=== PATIENT | male | born 1960 | race Caucasian/White ===

== ENCOUNTER → 2018-12-23 08:49 | Outpatient (CLI) | payer OTHER, SELFPAY ==
[2018-12-23 10:59] LABS: Cholesterol 123 mg/dL (140-199); HDL Cholesterol 66 mg/dL (40-60); LDL Cholesterol Calculated 48 mg/dL (<100); Triglycerides 44 mg/dL (35-150)
[2018-12-26 15:31] LABS: Lipoprotein (a) 178 nmol/L (<75)
== END ==
PROVIDERS: PCP Internal Medicine; Visit Provider Internal Medicine
DX: I25.10 Atherosclerotic heart disease of native coronary artery without angina pectoris (principal)
CPT/HCPCS: 36415; 80061; 83695

== ENCOUNTER 2020-11-24 19:12 | Emergency (ER) | payer OTHER, SELFPAY ==
[2020-11-24 19:14] VITALS: BP 160/80; PULSE 75; RESP 18; TEMP 36.7; O2SAT 99
--- NOTE | 2020-11-24 19:17 | DI.RAD.S_ITS ---
PROCEDURE: XR CLAVICLE LT INDICATIONS: fall TECHNIQUE: 2 views of the clavicle were acquired. COMPARISON: None. FINDINGS: Bones: No fractures or dislocations. There is slight elevation of the distal clavicle respect to the acromion but no significant coracoclavicular interval widening. Acromioclavicular interval remains normal. No suspicious bony lesions. Soft tissues: No suspicious soft tissue calcifications. IMPRESSION: 1. Slight distal clavicular elevation without significant AC or CC joint space widening. Consider routine evaluation without and with weights if symptoms continue. 2. No visible clavicular fracture. Dictated by: Blossom Chavez M.D. on 11/24/2020 at 19:54 Approved by: Blossom Chavez M.D. on 11/24/2020 at 19:56
--- NOTE | 2020-11-24 19:17 | DI.RAD.S_ITS ---
PROCEDURE: XR WRIST LT MIN 3V INDICATIONS: fall TECHNIQUE: Four views of the wrist were acquired. COMPARISON: None. FINDINGS: Bones: No fractures or dislocations. Mild degenerative spurring at the 1st CMC joint. No suspicious bony lesions. Scaphoid view: No fractures. Soft tissues: No suspicious soft tissue calcifications. IMPRESSION: Intact left wrist. Dictated by: Blossom Chavez M.D. on 11/24/2020 at 19:56 Approved by: Blossom Chavez M.D. on 11/24/2020 at 19:57
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
[2020-11-24 20:43] VITALS: BP 155/83; PULSE 76; RESP 16; O2SAT 100
== END 2020-11-24 20:44 | disposition home or self-care (01) ==
PROVIDERS: Emergency Provider Emergency Medicine; PCP Internal Medicine
DX: S63.502A Unspecified sprain of left wrist, initial encounter (principal); S43.006A Unspecified dislocation of unspecified shoulder joint, initial encounter; W19.XXXA Unspecified fall, initial encounter
CPT/HCPCS: 73000; 73110; 99281; 99283

== ENCOUNTER → 2024-02-06 13:47 | Outpatient (CLI) | payer OTHER, SELFPAY ==
[2024-02-06 21:07] LABS: Prostate Specific Antigen 0.162 ng/mL (0.10-4.00)
[2024-02-06 21:08] LABS: Testosterone 77.4 ng/dL (71.8-623)
== END ==
PROVIDERS: PCP Family Medicine; Visit Provider Physician Assistant
DX: C61 Malignant neoplasm of prostate (principal)
CPT/HCPCS: 84153; 84403

== ENCOUNTER → 2024-04-13 08:48 | Outpatient (CLI) | payer OTHER, SELFPAY ==
[2024-04-13 18:08] LABS: Add Manual Diff / Slide Review NO; Basophils Absolute Auto 0 /uL (0-100); Basophils Percent Auto 0.7 % (0-2); Eosinophils Absolute Auto 200 /uL (0-450); Eosinophils Percent Auto 3.2 % (2-4); Hematocrit 44.3 % (41-53); Hemoglobin 14.8 g/dL (13.5-17.5); Lymphocytes Absolute Auto 700 /uL (1100-4500); Lymphocytes Percent Auto 11.1 % (25-40); Mean Corpuscular HGB Conc 33.5 % (30-36); Mean Corpuscular Hemoglobin 31.3 PG (26-34); Mean Corpuscular Volume 93.5 fL (80-100); Monocytes Absolute Auto 600 /uL (0-900); Monocytes Percent Auto 8.9 % (3-14); Neutrophils Absolute Auto 4700 /uL (1500-7000); Neutrophils Percent Auto 76.1 % (50-75); Platelet Count 237 X10^3/uL (150-400); Red Blood Cell Count 4.74 X10^6/uL (4.5-5.9); Red Cell Distribution Width 13.8 % (11.6-14.8); White Blood Cell Count 6.2 X10^3/uL (4.5-11.0)
[2024-04-13 18:21] LABS: Alanine Aminotransferase 30 IU/L (<50); Albumin 4.3 g/dL (3.5-5.0); Albumin Globulin Ratio 1.4 (1.0-2.8); Alkaline Phosphatase 78 U/L (38-126); Aspartate Aminotransferase 35 IU/L (17-59); BUN Creatinine Ratio 18.1 (6-22); Blood Urea Nitrogen 15 mg/dL (9-20); Calcium 9.3 mg/dL (8.4-10.2); Carbon Dioxide 26 mmol/L (22-32); Chloride 103 mmol/L (98-107); Cholesterol 148 mg/dL (140-199); Estimated Glomerular Filt Rate > 60 mL/min (>60); Glucose 102 mg/dL (80-110); HDL Cholesterol 60 mg/dL (40-60); HEMOLYSIS 31 (0-50); LDL Cholesterol Calculated 73 mg/dL (<100); Potassium 4.6 mmol/L (3.4-5.1); Sodium 137 mmol/L (137-145); Total Protein 7.3 g/dL (6.3-8.2); Triglycerides 74 mg/dL (35-150)
[2024-04-13 18:51] LABS: Prostate Specific Antigen 0.352 ng/mL (0.10-4.00)
[2024-04-19 08:11] LABS: Testosterone Total 714.4 ng/dL (264.0-916.0)
== END ==
PROVIDERS: PCP Family Medicine; Visit Provider Family Medicine
DX: I10 Essential (primary) hypertension (principal); E78.2 Mixed hyperlipidemia; I25.2 Old myocardial infarction; C61 Malignant neoplasm of prostate; Z95.5 Presence of coronary angioplasty implant and graft; I25.10 Atherosclerotic heart disease of native coronary artery without angina pectoris
CPT/HCPCS: 80053; 80061; 84153; 84402; 84403; 85025

== ENCOUNTER → 2024-05-24 14:26 | Outpatient (CLI) | payer OTHER, SELFPAY ==
[2024-05-24 19:47] LABS: C-Reactive Protein Quant < 0.5 mg/dL (<1.0)
[2024-05-24 20:37] LABS: Erythrocyte Sedimentation Rate 1 MM/HR (0-15)
[2024-05-29 21:12] LABS: ANA Screen, IFA Negative (.)
== END ==
PROVIDERS: PCP Family Medicine; Visit Provider Family Medicine
DX: M25.561 Pain in right knee (principal); M25.562 Pain in left knee
CPT/HCPCS: 85651; 86038; 86140

== ENCOUNTER → 2024-08-16 12:02 | Outpatient (CLI) | payer OTHER, SELFPAY ==
[2024-08-16 20:26] LABS: Prostate Specific Antigen 0.242 ng/mL (0.10-4.00)
== END ==
PROVIDERS: PCP Family Medicine; Visit Provider Radiology Radiation Oncology
DX: C61 Malignant neoplasm of prostate (principal)
CPT/HCPCS: 84153

== ENCOUNTER → 2024-12-25 11:25 | Outpatient (CLI) | payer OTHER, SELFPAY ==
[2024-12-25 20:03] LABS: Add Manual Diff / Slide Review NO; Basophils Absolute Auto 0 /uL (0-100); Basophils Percent Auto 0.7 % (0-2); Eosinophils Absolute Auto 200 /uL (0-450); Hematocrit 45.5 % (41-53); Hemoglobin 15.3 g/dL (13.5-17.5); Lymphocytes Absolute Auto 900 /uL (1100-4500); Lymphocytes Percent Auto 15.9 % (25-40); Mean Corpuscular HGB Conc 33.7 % (30-36); Mean Corpuscular Hemoglobin 31.4 PG (26-34); Monocytes Absolute Auto 500 /uL (0-900); Monocytes Percent Auto 9.7 % (3-14); Neutrophils Absolute Auto 3900 /uL (1500-7000); Neutrophils Percent Auto 70.7 % (50-75); Platelet Count 199 X10^3/uL (150-400); Red Blood Cell Count 4.89 X10^6/uL (4.5-5.9); Red Cell Distribution Width 13.8 % (11.6-14.8); White Blood Cell Count 5.5 X10^3/uL (4.5-11.0)
[2024-12-25 20:05] LABS: BUN Creatinine Ratio 12.2 (6-22); Blood Urea Nitrogen 10 mg/dL (9-20); Calcium 9.1 mg/dL (8.4-10.2); Carbon Dioxide 28 mmol/L (22-32); Chloride 104 mmol/L (98-107); Cholesterol 128 mg/dL (140-199); Estimated Glomerular Filt Rate > 60 mL/min (>60); Glucose 68 mg/dL (70-99); HDL Cholesterol 63 mg/dL (40-60); HEMOLYSIS < 15 (0-50); LDL Cholesterol Calculated 45 mg/dL (<100); Potassium 4.5 mmol/L (3.4-5.1); Sodium 139 mmol/L (137-145); Triglycerides 99 mg/dL (35-150)
[2024-12-25 22:29] LABS: Testosterone 749 ng/dL (71.8-623)
[2024-12-26 00:37] LABS: Prostate Specific Antigen 0.268 ng/mL (0.10-4.00)
== END ==
PROVIDERS: PCP Family Medicine; Visit Provider Physician Assistant
DX: C61 Malignant neoplasm of prostate (principal); I25.10 Atherosclerotic heart disease of native coronary artery without angina pectoris; I25.2 Old myocardial infarction; I10 Essential (primary) hypertension; E78.2 Mixed hyperlipidemia; Z95.5 Presence of coronary angioplasty implant and graft
CPT/HCPCS: 80048; 80061; 84153; 84403; 85025

== ENCOUNTER 2025-01-10 19:07 | Emergency (ER) | payer OTHER, SELFPAY ==
[2025-01-10 19:21] VITALS: BP 172/81; PULSE 66; RESP 18; TEMP 37.1; O2SAT 100; BMI 24.4
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
--- NOTE | 2025-01-10 19:25 | PC.NURSE ---
Sling applied in triage for patient comfort.
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
[2025-01-10] MEDS: IBUPROFEN 400 MG TABLET 800 MG PO (19:29)
[2025-01-10] MEDS: ACETAMINOPHEN 325 MG TABLET 975 MG PO (19:29)
[2025-01-10 21:05] VITALS: BP 155/84; PULSE 79; RESP 18; O2SAT 96
== END 2025-01-10 21:09 | disposition left against medical advice (07) ==
PROVIDERS: Emergency Provider Emergency Medicine; PCP Family Medicine
DX: S49.91XA Unspecified injury of right shoulder and upper arm, initial encounter (principal); R07.81 Pleurodynia; V29.99XA Rider (driver) (passenger) of other motorcycle injured in unspecified traffic accident, initial encounter
CPT/HCPCS: 71101; 73030; 99283

== ENCOUNTER → 2025-05-03 08:19 | Outpatient (CLI) | payer OTHER, SELFPAY ==
[2025-05-03 19:33] LABS: Cholesterol 102 mg/dL (140-199); HDL Cholesterol 59 mg/dL (40-60); Triglycerides 67 mg/dL (35-150)
[2025-05-03 21:05] LABS: Urine N gonorrhoeae NOT DETECTED
[2025-05-03 21:08] LABS: Urine Chlamydia NOT DETECTED
[2025-05-04 15:57] LABS: HIV 1 & 2 Ab/Ag 4th Gen Combo NEGATIVE (NEGATIVE)
== END ==
PROVIDERS: PCP Family Medicine; Visit Provider Family Medicine
DX: Z11.3 Encounter for screening for infections with a predominantly sexual mode of transmission (principal); E78.2 Mixed hyperlipidemia
CPT/HCPCS: 80061; 86592; 87389; 87491; 87591